=== PATIENT | male | born 1935 | race Caucasian/White ===

== ENCOUNTER 2017-10-21 18:55 | Inpatient (IN) | payer OTHER ==
[~2017-10-21] VITALS: Ht 167.6 cm; Wt 81.6 kg
[2017-11-08] MEDS ORDERED: OXYC1TAB9 PO (14:42)
== END 2017-11-08 15:12 | disposition home or self-care (01) | DRG 331 ==
LOC: SURH 11-05 06:25 → O/R 11-05 06:25 → SURG 11-05 07:00 → SURH 11-05 11:02 → MEDI 11-05 11:02 → SURG 11-05 11:15 → SURH 11-05 21:15
PROVIDERS: Surgery
PROC: 4A033R1 Measurement of Arterial Saturation, Peripheral, Percutaneous Approach (ICD-10-PCS; 2017-11-05)
PROC: 4A12X4Z Monitoring of Cardiac Electrical Activity, External Approach (ICD-10-PCS; 2017-11-05)
PROC: 0DTF4ZZ Resection of Right Large Intestine, Percutaneous Endoscopic Approach (ICD-10-PCS; principal; 2017-11-05 07:00)
DX: K63.5 Polyp of colon (principal); F03.90 Unspecified dementia, unspecified severity, without behavioral disturbance, psychotic disturbance, mood disturbance, and anxiety; E78.00 Pure hypercholesterolemia, unspecified; I11.9 Hypertensive heart disease without heart failure